=== PATIENT | female | born 1995 | race Caucasian/White ===

== ENCOUNTER 2023-03-14 10:59 | Day surgery (SDC) | payer BC ==
[~2023-03-14 10:59] MED LIST: Bacitracin Oint 15 GM Tube ONE; EPINEPHrine 1 MG/ML SDV ONE; Lactated Ringers 1,000 ML IV SCH; Lidocaine 1% 30 ML SDV ONE; Lidocaine 1% 8 ML ONE; Midazolam 1 MG/ML 2 ML SDV ONE; Propofol 200 MG/20 ML SDV ONE; Sodium Chloride 0.9% 10 ML Syringe FLUSH PRN; Sodium Chloride 0.9% 10 ML Syringe FLUSH SCH; fentaNYL 100 MCG/2 ML SDV ONE
[2023-03-14] MEDS ORDERED: Midazolam 1 MG/ML 2 ML SDV ONE (11:45)
[2023-03-14] MEDS ORDERED: ceFAZolin 2 GM Vial ONE (11:50)
[2023-03-14] MEDS ORDERED: Ondansetron 4 MG/2 ML SDV ONE (11:52)
[2023-03-14] MEDS ORDERED: Propofol 200 MG/20 ML SDV ONE ×2 (12:14→12:27)
[2023-03-14] MEDS ORDERED: Lactated Ringers 1,000 ML ONE ×2 (12:16)
[2023-03-14 15:54] VITALS: BP 126/66; PULSE 95
== END 2023-03-14 14:53 | disposition home or self-care (01) ==
LOC: JD.SDS 10:59
PROVIDERS: ATTEND Surgery
DX: N61.0 Mastitis without abscess (principal); N60.01 Solitary cyst of right breast; F41.1 Generalized anxiety disorder; G40.309 Generalized idiopathic epilepsy and epileptic syndromes, not intractable, without status epilepticus; Z79.899 Other long term (current) drug therapy
CPT/HCPCS: 19120; 87070; 87075; 87077; 87186; 87205; A9270; J0171; J0690; J2250; J2405; J2704; J3010; J7120; 00400; J3490

== ENCOUNTER 2023-07-24 13:24 | Emergency (ER) | payer BC ==
[2023-07-24] MEDS ORDERED: Sodium Chloride 0.9% 10 ML Syringe FLUSH PRN (13:40)
[2023-07-24] MEDS: Sodium Chloride 0.9% 100 ML IV SCH (13:49)
[2023-07-24] MEDS: Iopamidol 755 Mg/ML 100 ML Bottle IVPUSH ONE (13:49)
[2023-07-24] MEDS: Sodium Chloride 0.9% 10 ML Syringe FLUSH PRN (13:49)
[2023-07-24 13:50] LABS: BASOPHILS PERCENT AUTO 0.4 % (0.0-1.0); HEMATOCRIT 46.2 % (37.0-47.0); HEMOGLOBIN 15.6 gm/dl (12.0-16.0); IMMATURE GRAN ABSOLUTE AUTO 0.03 K/mm3 (0.00-0.05); IMMATURE GRAN PERCENT AUTO 0.4 % (0.0-0.4); LYMPHOCYTES ABSOLUTE AUTO 2.4 K/mm3 (1.0-4.8); LYMPHOCYTES PERCENT AUTO 30.2 % (24.0-44.0); MEAN CORPUSCULAR HEMOGLOBIN 28.5 pg (28.0-32.0); MEAN CORPUSCULAR HGB CONC 33.8 g/dl (32.0-36.0); MEAN CORPUSCULAR VOLUME 84.3 fl (83.0-99.0); MEAN PLATELET VOLUME 8.4 fl (9.4-12.3); MONOCYTES ABSOLUTE AUTO 0.7 K/mm3 (0.0-0.8); MONOCYTES PERCENT AUTO 8.8 % (0.0-8.0); NEUTROPHILS ABSOLUTE AUTO 4.9 K/mm3 (1.8-7.7); NEUTROPHILS PERCENT AUTO 60.2 % (41.0-71.0); PLATELET COUNT,PLT 270 K/mm3 (150-400); RED BLOOD CELL COUNT 5.48 M/mm3 (4.10-5.30); WHITE BLOOD CELL COUNT,WBC 8.09 K/mm3 (3.9-11.3)
[2023-07-24 14:17] LABS: A/G RATIO 1.2 (1-2); ALANINE AMINOTRANSFERASE,ALT 21 U/L (14-59); ALBUMIN 4.2 g/dl (3.4-5.0); ALKALINE PHOSPHATASE 64 U/L (46-116); ANION GAP 15.4 (5-15); ASPARTATE AMNIOTRANSFERASE,AST 9 U/L (15-37); BILIRUBIN TOTAL 0.4 mg/dL (0.2-1.0); BLOOD UREA NITROGEN,BUN 15 mg/dL (7-18); BUN/CREATININE RATIO 11.5 (14-18); CALCIUM 9.5 mg/dL (8.5-10.1); CARBON DIOXIDE,CO2 24 mEq/L (21-32); CHLORIDE,CL 102 mEq/L (98-107); CREATININE 1.3 mg/dL (0.55-1.02); EST CRCL DRUG DOSING (CG) 51.87 mL/min; ESTIMATED GFR 58 mL/min (>60); GLUCOSE RANDOM 88 mg/dL (70-99); POTASSIUM,K 3.4 mEq/L (3.5-5.1); PROTEIN TOTAL,TP 7.6 g/dl (6.4-8.2); SODIUM,NA 138 mEq/L (136-145)
[2023-07-24 14:30] LABS: HCG QUANTITATIVE < 1.0 mIU/mL; INR 0.95; PROTHROMBIN TIME 10.2 SECONDS (9.7-12.0); TROPONIN I HIGH SENSITIVITY < 4 pg/mL (<=51)
[2023-07-24 14:31] LABS: PTT,PARTIAL THROMBOPLSTIN TIME 25.6 SECONDS (21.7-31.4)
[2023-07-24] MEDS: Sodium Chloride 0.9% 1,000 ML IV ONE (15:01)
[2023-07-24 19:55] VITALS: BP 119/75; PULSE 98
== END 2023-07-24 18:40 | disposition critical access hospital (66) ==
LOC: JD.ED 13:24
DX: E86.0 Dehydration (principal); Z88.0 Allergy status to penicillin; Z88.8 Allergy status to other drugs, medicaments and biological substances; Z79.899 Other long term (current) drug therapy; Z86.19 Personal history of other infectious and parasitic diseases
CPT/HCPCS: 36415; 70450; 70496; 70498; 71045; 80053; 82947; 84484; 84702; 85025; 85610; 85730; 93005; 96360; 96361; 99285; J3490; J7030; Q9967